=== PATIENT | female | born 1945 | race Caucasian/White ===

== ENCOUNTER → 2017-02-23 | Outpatient (CLI) | payer OTHER, BC ==
[~2017-02-23] MED LIST: BACTRIM DS TAB1 EACH PO; COLACE100 MG PO; CYMBALTA60 MG PO; ESTRADIOL 1 MG T1 M1 PO; FOSAMAX 10 MG10 M1 PO; LEVOTHYROXIN0.112 M1 PO; LISINOPRIL10 MG PO; LYRICA100 MG PO; OXYCODONE-ACET1 EAC2 PO; OXYCONTIN30 MG PO; PROTONIX40 M2 PO; VITAMIN B-12250 MCG PO; VITAMIN D 5050000 I1
== END ==
LOC: MRI 02-13 18:22
DX: M47.896 Other spondylosis, lumbar region (principal); M54.5 Low back pain

== ENCOUNTER → 2017-03-23 | Outpatient (CLI) | payer OTHER, BC | LOC: RAD 14:56 | DX: Z12.31 Encounter for screening mammogram for malignant neoplasm of breast (principal) ==

== ENCOUNTER → 2017-10-11 | Outpatient (CLI) | payer OTHER, BC ==
[~2017-10-11] VITALS: Ht 162.6 cm; Wt 97.1 kg
[~2017-10-11] MED LIST changes: +ACCUNEB SO1.25 MG/1 INH; +ASPIR 8181 M1 PO; +BENTYL 10 MG CA10 M1 PO; +CALCIUM CARBO1250 MG PO; +CELEBREX 200 M200 M1 PO; +CENTRUM SILVER1 EAC4 PO; +CYMBALTA30 MG PO; +IMDUR 30 MG TAB30 M1 PO; +JANUMET 50-5001 EACH PO; +K-PHOS ORIGINA500 MG PO; +LEVOTHYROXIN0.088 MG PO; +LISINOPRIL-HCT1 EAC2 PO; +LYRICA150 MG PO; +MAGNESIUM OXID400 MG PO; +METFORMIN HCL500 MG PO; +NEURONTIN 300300 M1 PO; +NITROFURANTOIN100 MG PO; +PROBIOTIC1 EAC1 PO; +SYMBICORT160 MCG/4. INH; +VICTOZA0.6 MG/0.1 SUBQ; +VITAMIN B-12500 MCG PO; +VITAMIN D2000 UNIT PO
--- NOTE | ~2017-10-11 | CATHLAB ---
[facility] [place] [address] INVASIVE PROCEDURE REPORT Name: SOHAM AGUSTINRAINE Room #: REG [facility]#: [id number] Admission: 10/11/17 Attend Phys: Wiliam Cottrell Discharge: Date of : 49 Date of Service: 10/12/17 1020 Report #: [id number] THIS REPORT FOR: //name// APPROVED REPORT Patient Details Patient Status: Out-Patient Room #: The patient is a 72 year-old female Event Personnel Wiliam Clemente Pit Crew Support Worker, Loli Cuellar, Jayda Santana Penny, Wes RN, Ghulam Leija RN assistant prosecuting attorney Performed Art Access - R femoral artery* 15875 Initial Mod Sed Same Phys/QHP Gr5y 120466 Left Heart Cath w/or w/o Coronaries [id number] [facility] Hemostasis with Manual pressure, supervision of conscious sedation Procedure Narrative The patient was brought electively to the Cardiac Catheterization Laboratory and was prepped and draped in a sterile manner. The Right Groin^ was infiltrated with 1% Lidocaine subcutaneous anesthesia. A PINNACLE 4FR Sheath #[id number] sheath was inserted into the RFA^. Coronary angiography was performed using coronary diagnostic catheters. The right coronary system was accessed and visualized with a JR 4 catheter. The left coronary system was accessed and visualized with a JL 4 catheter. The left ventricle was accessed and visualized with a Pigtail catheter. Left ventricular/Aortic Valve gradient assessed via catheter pullback. Hemostasis was obtained with manual pressure following sheath removal without any complications. The patient tolerated the procedure well and there were no complications associated with the procedure. There was no hematoma. Intraoperative Conscious Sedation Sedation start time: 12:43 Case end Time: 13:02 Versed 2.0 mg Fluoro Time: 1.14 minutes Dose: DAP 2217.70 cGycm2 317 mGy Contrast Type and Amount: Omnipaque 50 ml Coronary Angiography [facility] [place] [address] INVASIVE PROCEDURE REPORT Name: SOHAM AGUSTIN Room #: REG CL [facility]#: [id number] Admission: 10/11/17 Attend Phys: Wiliam Cottrell Discharge: Date of : 49 Date of Service: 10/12/17 1020 Report #: [id number] The patient's coronary anatomy is right dominant. Diagnostic Cath Left Main Normal origin and moderate to large sized bifurcates that into descending 3 of high-grade disease LAD Moderate caliber type II vessel which in its proximal course has a eccentric 40-45% lesion is not flow-limiting. And continues in the anterior interventricular sulcus giving rise to septal and diagonal branches free of high-grade disease Diagonal 1 Small to moderate caliber size 3 of high-grade disease Circumflex Normal caliber vessel nondominant giving rise to marginal branches free of significant stenotic lesions. OM1 No hemodynamically significant lesions noted Right Coronary Large-caliber vessel of normal origin which courses in the AV groove prior to the acute margin is an eccentric 50-60% lesion which does not appear to be flow-limiting. It then continues on giving rise to posterior descending posterior wall circulation free of high-grade disease R PDA Her caliber vessel coursing in the posterior interventricular sulcus free of high-grade disease Left Ventriculography Left Ventriculography was not performed. Hemodynamics The aortic pressure is 123/76 mmHg with a mean of 96 mmHg. The left ventricular pressure is 133/14 mmHg with a mean of mmHg. The left ventricular end diastolic pressure is 30 mmHg. Conclusion 1. Coronary disease mild two-vessel nonobstructive 2. Normal hemodynamics Recommendations Cardiac Risk Reduction Program <ELECTRONICALLY SIGNED> By: Wiliam Clemente MD 10/12/17 1020 1020 1020 Wiliam Celmente MD /INF
[2017-10-11 11:32] VITALS: BP 132/67
== END | disposition home or self-care (01) ==
LOC: CATH 09:49
DX: I25.10 Atherosclerotic heart disease of native coronary artery without angina pectoris (principal); I10 Essential (primary) hypertension; E11.9 Type 2 diabetes mellitus without complications; E03.9 Hypothyroidism, unspecified; K21.9 Gastro-esophageal reflux disease without esophagitis; M79.7 Fibromyalgia; F32.89 Other specified depressive episodes; Z98.890 Other specified postprocedural states; Z79.4 Long term (current) use of insulin; Z96.651 Presence of right artificial knee joint; Z88.1 Allergy status to other antibiotic agents; Z79.82 Long term (current) use of aspirin; Z79.891 Long term (current) use of opiate analgesic; Z85.44 Personal history of malignant neoplasm of other female genital organs; Z90.710 Acquired absence of both cervix and uterus

== ENCOUNTER → 2020-08-13 | Outpatient (CLI) | payer OTHER ==
[2020-08-13 13:02] LABS: ABSOLUTE NEUTROPHILS 2.9 thou/uL (1.4-8.2); BASOPHILS 0.3 % (0.0-2.0); EOSINOPHILS 0.8 % (0.0-3.0); HEMATOCRIT 36.2 % (37.0-47.0); LYMPHOCYTES 37.4 % (24.0-44.0); MCH 29.6 pg (26.0-34.0); MCHC 33.2 g/dL (28.0-37.0); MCV 89.3 fL (80.0-100.0); MONOCYTES 9.2 % (1.0-8.0); PLATELET COUNT 170 thou/uL (150-400); POLYS 52.3 % (36.0-66.0); RBC 4.06 mil/uL (4.20-5.00); RDW 13.4 % (10.5-14.5); WBC 5.6 thou/uL (4.0-11.0)
[2020-08-13 13:25] LABS: ALBUMIN 4.9 g/dL (3.4-5.0); ANION GAP 8 mmol/L (7-16); BUN 31 mg/dL (7-18); CALCIUM 9.6 mg/dL (8.5-10.1); CHLORIDE 99 mmol/L (98-107); CHOLESTEROL 109 mg/dL (<200); CO2 31 mmol/L (21-32); CREATININE 1.9 mg/dL (0.6-1.0); GLUCOSE 313 mg/dL (74-106); HDL CHOLESTEROL 33 mg/dL (>40); LDL CHOLESTEROL 43 mg/dL (<100); POTASSIUM 3.4 mmol/L (3.5-5.1); SGOT 34 U/L (15-37); SGPT 26 U/L (30-65); SODIUM 138 mmol/L (136-145); TC:HDL 3.3 Ratio (Not establshd); TOTAL BILIRUBIN 0.8 mg/dL (0.2-1.0); TOTAL PROTEIN 8.8 g/dL (6.4-8.2); TRIGLYCERIDE 167 mg/dL (<150); VLDL 33 mg/dL (<40)
[2020-08-13 23:06] LABS: GLYCOHEMOGLOBIN (HGB A1C) 8.5 % (4.8-5.6)
== END ==
LOC: CAT 12:01
PROVIDERS: ATTEND Nurse Practitioner
DX: K57.30 Diverticulosis of large intestine without perforation or abscess without bleeding (principal); K86.2 Cyst of pancreas; K56.41 Fecal impaction; M47.816 Spondylosis without myelopathy or radiculopathy, lumbar region; M41.86 Other forms of scoliosis, lumbar region; M16.0 Bilateral primary osteoarthritis of hip; Z88.8 Allergy status to other drugs, medicaments and biological substances; Z90.710 Acquired absence of both cervix and uterus; Z98.890 Other specified postprocedural states

== ENCOUNTER 2021-04-02 15:55 | Emergency (ER) | payer OTHER ==
[~2021-04-02] VITALS: Ht 162.6 cm; Wt 80.7 kg
[2021-04-02 17:13] LABS: URINE BILIRUBIN NEGATIVE (Negative); URINE BLOOD NEGATIVE (Negative); URINE CLARITY CLEAR; URINE COLOR YELLOW; URINE GLUCOSE-RANDOM* 3+ (Negative); URINE KETONES NEGATIVE (Negative); URINE LEUKOCYTES-REFLEX NEGATIVE (Negative); URINE NITRITE-REFLEX NEGATIVE (Negative); URINE PROTEIN (DIPSTICK) NEGATIVE (Negative); URINE UROBILINOGEN 0.2 E.U./dl (0.2-1.0)
[2021-04-02 17:14] LABS: EOSINOPHILS 0.6 % (0.0-3.0); HEMOGLOBIN 11.9 gm/dL (12.0-15.0); PLATELET COUNT 154 thou/uL (150-400); RBC 4.02 mil/uL (4.20-5.00); WBC 5.5 thou/uL (4.0-11.0)
[2021-04-02 17:16] LABS: ABSOLUTE NEUTROPHILS 2.3 thou/uL (1.4-8.2); BASOPHILS 0.3 % (0.0-2.0); HEMATOCRIT 35.8 % (37.0-47.0); LYMPHOCYTES 50.8 % (24.0-44.0); MCH 29.5 pg (26.0-34.0); MCHC 33.2 g/dL (28.0-37.0); MONOCYTES 6.6 % (1.0-8.0); POLYS 41.7 % (36.0-66.0); RDW 13.7 % (10.5-14.5)
[2021-04-02 17:23] LABS: ANION GAP 12 mmol/L (7-16); BUN 17 mg/dL (7-18); CALCIUM 8.9 mg/dL (8.5-10.1); CHLORIDE 103 mmol/L (98-107); CO2 25 mmol/L (21-32); CREATININE 1.6 mg/dL (0.6-1.0); GLUCOSE 236 mg/dL (74-106); POTASSIUM 3.6 mmol/L (3.5-5.1); SODIUM 140 mmol/L (136-145)
[2021-04-02 17:33] LABS: LIPASE 164 U/L (73-393); SGOT 29 U/L (15-37); SGPT 38 U/L (30-65); TOTAL BILIRUBIN 0.5 mg/dL (0.2-1.0); TOTAL PROTEIN 7.4 g/dL (6.4-8.2); TROPONIN-I <0.06 ng/mL (<0.06)
[2021-04-02] MEDS ORDERED: JARDIANCE10 MG PO (17:36)
[2021-04-02] MEDS ORDERED: NORCO5 PO (18:20)
[2021-04-02 19:07] VITALS: BP 113/46
--- NOTE | 2021-04-03 13:10 | EKG ---
[address] [address] ELECTROCARDIOGRAM REPORT Name: SOHAM AGUSTIN Room #: DEP [facility]#: [id number] Admission: 04/02/21 Attend Phys: Discharge: 04/02/21 Date of : 49 Report #: [id number] [facility] ED Test Date: 2021-04-02 Test Time: 16:31:39 Pat Name: SOHAM AGUSTIN Department: Room: Gender: F Emergency Management System Director: KF : 1945 Requested By: Kaleb Wasserman Order Number: [id number] MD: Christoph Gomez Measurements Intervals Fowler Rate: 70 P: 42 MS: 143 QRS: 10 QRSD: 148 T: 81 QT: 446 QTc: 482 Interpretive Statements Sinus rhythm Left bundle branch block Compared to ECG 07/14/2017 13:58:37 No significant changes Electronically Signed On 04-03-2021 13:10:09 CDT by Christoph Gomez [email or web address] <ELECTRONICALLY SIGNED> By: Christoph Gomez MD 04/03/21 1310 1631 1631 Christoph Gomez MD /NGOZI
== END 2021-04-02 19:20 | disposition home or self-care (01) ==
LOC: ER 15:55
PROVIDERS: Emergency Medicine
DX: R53.1 Weakness (principal); M79.7 Fibromyalgia; E03.9 Hypothyroidism, unspecified; I10 Essential (primary) hypertension; E11.9 Type 2 diabetes mellitus without complications; Z88.1 Allergy status to other antibiotic agents; Z79.899 Other long term (current) drug therapy; Z90.710 Acquired absence of both cervix and uterus

== ENCOUNTER 2021-04-29 17:33 | Emergency (ER) | payer OTHER ==
[~2021-04-29] VITALS: Ht 162.6 cm; Wt 80.7 kg
[~2021-04-29 17:33] MED LIST changes: +JARDIANCE10 MG PO; +NORCO5 PO
[2021-04-29 19:06] LABS: HEMOGLOBIN 11.4 gm/dL (12.0-15.0); RDW 14.1 % (10.5-14.5); WBC 5.9 thou/uL (4.0-11.0)
[2021-04-29 19:07] LABS: HEMATOCRIT 34.5 % (37.0-47.0); MCHC 33.1 g/dL (28.0-37.0); MCV 90.4 fL (80.0-100.0); RBC 3.81 mil/uL (4.20-5.00)
[2021-04-29 19:22] LABS: ANION GAP 10 mmol/L (7-16); BUN 18 mg/dL (7-18); CALCIUM 8.8 mg/dL (8.5-10.1); CHLORIDE 107 mmol/L (98-107); CO2 24 mmol/L (21-32); CREATININE 1.4 mg/dL (0.6-1.0); GLUCOSE 256 mg/dL (74-106); POTASSIUM 3.9 mmol/L (3.5-5.1); SODIUM 141 mmol/L (136-145)
[2021-04-29 19:31] LABS: SGOT 44 U/L (15-37); SGPT 60 U/L (14-59); TOTAL BILIRUBIN 0.5 mg/dL (0.2-1.0); TOTAL PROTEIN 7.6 g/dL (6.4-8.2); TROPONIN-I <0.06 ng/mL (<0.06)
[2021-04-29 20:22] LABS: URINE BILIRUBIN NEGATIVE (Negative); URINE BLOOD NEGATIVE (Negative); URINE CLARITY CLEAR; URINE COLOR YELLOW; URINE GLUCOSE-RANDOM* 3+ (Negative); URINE KETONES NEGATIVE (Negative); URINE LEUKOCYTES-REFLEX NEGATIVE (Negative); URINE NITRITE-REFLEX NEGATIVE (Negative); URINE PROTEIN (DIPSTICK) NEGATIVE (Negative); URINE SPECIFIC GRAVITY 1.015 (1.005-1.035); URINE UROBILINOGEN 0.2 E.U./dl (0.2-1.0)
[2021-04-29 20:38] VITALS: BP 112/94
--- NOTE | 2021-04-30 07:20 | EKG ---
[address] [place] [address] [facility] [place] [address] ELECTROCARDIOGRAM REPORT Name: SOHAM AGUSTIN Room #: DEP [facility]#: [id number] Admission: 04/29/21 Attend Phys: Discharge: 04/29/21 Date of : 49 Report #: [id number] [facility] ED Test Date: 2021-04-29 Test Time: 19:01:29 Pat Name: SOHAM AGUSTIN Department: Room: Gender: F Academic Affairs Manager: gurmeet : 1945 Requested By: Jacqueline Malik Order Number: [id number] MD: Vamsi Brown Measurements Intervals Lena Rate: 67 P: 31 CT: 151 QRS: -2 QRSD: 142 T: 56 QT: 434 QTc: 458 Interpretive Statements Sinus rhythm Left bundle branch block Baseline wander in lead(s) V3 Compared to ECG 04/02/2021 16:31:39 No significant changes Electronically Signed On 04-30-2021 7:20:27 CDT by Vamsi Brown [email or web address] <ELECTRONICALLY SIGNED> By: Vamsi Brown MD, [facility] 04/30/21 0720 00 00 Vamsi Brown MD, [facility] /EPI
== END 2021-04-29 20:38 | disposition home or self-care (01) ==
LOC: ER 17:33
PROVIDERS: Nurse Practitioner Family
DX: M79.604 Pain in right leg (principal); R06.00 Dyspnea, unspecified; E11.65 Type 2 diabetes mellitus with hyperglycemia; I10 Essential (primary) hypertension; E03.9 Hypothyroidism, unspecified; K21.9 Gastro-esophageal reflux disease without esophagitis; M79.7 Fibromyalgia; Z90.710 Acquired absence of both cervix and uterus; Z98.890 Other specified postprocedural states; Z88.1 Allergy status to other antibiotic agents